=== PATIENT | female | born 1960 | race Caucasian/White ===

== ENCOUNTER 2022-11-20 07:52 | Outpatient (CLI) | payer OTHER, SELFPAY ==
[2022-11-20 14:28] LABS: Albumin* 4.5 g/dL (3.3-5.0); Chloride* 108 mmol/L (96-114); Sodium* 143 mmol/L (135-149)
[2022-11-20 14:29] LABS: Potassium* 4.4 mmol/L (3.6-5.1)
[2022-11-20 14:30] LABS: Cholesterol* 177 mg/dL (90-199); Creatinine* 0.9 mg/dL (0.5-1.5); Estimated Glomerular Filt Rate 73 ml/min
[2022-11-20 14:31] LABS: Alanine Aminotransferase* 30 U/L (4-35); Alkaline Phosphatase* 49 U/L (40-150); Aspartate Amino Transferase* 32 U/L (12-35); Bilirubin Total* 0.9 mg/dL (0.1-1.5); Blood Urea Nitrogen* 19 mg/dL (7-30); Carbon Dioxide* 29 mmol/L (20-32); Glucose* 84 mg/dL (60-115); Total Protein* 7.3 g/dL (6.0-8.3); Triglycerides* 130 mg/dL (40-149)
[2022-11-20 14:32] LABS: Calcium* 9.6 mg/dL (8.4-10.6); HDL Cholesterol* 77 mg/dL (>=50); LDL Cholesterol Calculated 74 mg/dL (<100)
== END 2022-11-20 07:53 | disposition home or self-care (01) ==
PROVIDERS: PCP Family Medicine; Visit Provider Family Medicine
DX: Z00.00 Encounter for general adult medical examination without abnormal findings (principal); E78.5 Hyperlipidemia, unspecified
CPT/HCPCS: 80053; 80061

== ENCOUNTER 2024-03-18 07:56 | Outpatient (CLI) | payer BC, SELFPAY | END 2024-03-18 07:57 | disposition home or self-care (01) | LOC: NFLDREF 03-22 11:21 | PROVIDERS: PCP Physician Assistant Medical; Referring Provider Physician Assistant Medical; Visit Provider Physician Assistant Medical | DX: E78.01 Familial hypercholesterolemia (principal); Z13.228 Encounter for screening for other metabolic disorders; Z13.29 Encounter for screening for other suspected endocrine disorder | CPT/HCPCS: 80053; 80061; 84443 ==

== ENCOUNTER 2024-05-15 10:38 | Outpatient (CLI) | payer BC, SELFPAY ==
--- NOTE | 2024-05-15 10:45 | CRLHL7_ITS ---
For Patients: As a result of the Century Cures Act, medical imaging exams and procedure reports are released immediately into your electronic medical record. You may view this report before your referring provider. If you have questions, please contact your health care provider. BILATERAL SCREENING MAMMOGRAM WITH COMPUTER-AIDED DETECTION AND TOMOSYNTHESIS TECHNIQUE: CC and MLO views were obtained. These mammographic images have been obtained using full-field digital technique. These mammographic images were interpreted with the benefit of computer-aided detection. Breast tomosynthesis was used in this interpretation. COMPARISON FILM: 02/21/23, 10/10/19, 07/03/16. FINDINGS: The breasts are almost entirely fatty. IMPRESSION: There is no radiographic evidence for malignancy. ASSESSMENT: BI-RADS Category 1: Negative RECOMMENDATION: Routine screening mammogram in 1 year. A lay language report of this examination will be provided to the patient. CORBIN MUÑOZ M.D. Diagnostic Radiologist [email or web address] Transcribed: 1:[address]/Dictated by: Corbin Muñoz MD @ 05/16/2024 11:00:00 AM (Electronically Signed)
== END 2024-05-15 10:39 | disposition home or self-care (01) ==
LOC: MAMMO 10:39
PROVIDERS: PCP Family Medicine; Visit Provider Physician Assistant Medical
DX: Z12.31 Encounter for screening mammogram for malignant neoplasm of breast (principal)
CPT/HCPCS: 77063; 77067

== ENCOUNTER 2025-06-08 08:30 | Outpatient (CLI) | payer BC, SELFPAY | END 2025-06-08 08:31 | disposition home or self-care (01) | LOC: NFLDREF 06-09 18:11 | PROVIDERS: PCP Physician Assistant Medical; Referring Provider Physician Assistant Medical; Visit Provider Physician Assistant Medical | DX: E78.01 Familial hypercholesterolemia (principal) | CPT/HCPCS: 80053; 80061; 84443 ==

== ENCOUNTER 2025-07-07 10:21 | Outpatient (CLI) | payer BC, SELFPAY ==
[2025-07-09 04:58] LABS: HPV Source Cervical/Vag
[2025-07-10 13:17] LABS: Pap Test Digital Imaging Done
== END 2025-07-07 10:22 | disposition home or self-care (01) ==
PROVIDERS: PCP Physician Assistant Medical; Visit Provider Physician Assistant Medical
DX: Z01.419 Encounter for gynecological examination (general) (routine) without abnormal findings (principal)
CPT/HCPCS: 87624; 87625; 88141; 88142; 88175

== ENCOUNTER 2025-10-06 10:04 | Outpatient (CLI) | payer BC, SELFPAY ==
--- NOTE | 2025-10-06 10:15 | CRLHL7_ITS ---
For Patients: As a result of the Century Cures Act, medical imaging exams and procedure reports are released immediately into your electronic medical record. You may view this report before your referring provider. If you have questions, please contact your health care provider. INDICATION: BILATERAL SCREENING MAMMOGRAM, ASYMPTOMATIC 64 Y/O FEMALE COMPARISON: 05/15/2024, 02/21/2023, 10/10/2019 TECHNIQUE: Digital mammogram in CC and MLO projections including computer-aided detection (CAD) and tomosynthesis. BREAST COMPOSITION: There are scattered areas of fibroglandular density. FINDINGS: No suspicious findings. ASSESSMENT: BI-RADS 2 Benign RECOMMENDATION: Annual screening mammogram. A lay language report of this examination will be provided to the patient. Dictated by: Kay Pedraza MD @ 10/07/2025 12:03:04 (Electronically Signed)
== END 2025-10-06 10:05 | disposition home or self-care (01) ==
LOC: MAMMO 10:04
PROVIDERS: PCP Physician Assistant Medical; Visit Provider Physician Assistant Medical
DX: Z12.31 Encounter for screening mammogram for malignant neoplasm of breast (principal)
CPT/HCPCS: 77063; 77067